=== PATIENT | female | born 1970 | race Caucasian/White ===

== ENCOUNTER 2016-07-29 22:15 | Inpatient (IN) | payer OTHER ==
[~2016-07-29] VITALS: Ht 175.3 cm; Wt 83.6 kg
[~2016-07-29 22:15] MED LIST: LEVA750T PO; LISI10TA3 PO
[2016-07-29] MEDS ORDERED: PROPOFOL 1000 MG/100 ML INJ 100 ML ONE (22:32)
[2016-07-29 22:55] VITALS: O2SAT 100
[2016-07-29] MEDS: LACTATED RINGER'S 1000 ML INJ 1,000 ML IV SCH (22:55)
[2016-07-29] MEDS ORDERED: MAGNESIUM HYDROXIDE SUSP 30 ML CUP PO PRN (23:00)
[2016-07-29] MEDS ORDERED: MISCELLANEOUS NURSING INFORMATION XX SCH (23:00)
[2016-07-29] MEDS ORDERED: ENALAPRILAT 1.25 MG/ML VIAL IV PRN (23:00)
[2016-07-29] MEDS ORDERED: CHLORHEXIDINE GLUCONATE 2 % 1 PACK (2 CLOTHS) TOP PRN (23:00)
[2016-07-29] MEDS ORDERED: fentaNYL DRIP 250 ML IV SCH (23:00)
[2016-07-29] MEDS ORDERED: ONDANSETRON HCL 4 MG/2 ML VIAL IV PRN (23:00)
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
[2016-07-29 23:07] LABS: AUTOMATED NEUTROPHIL # 19.2 TH/MM3 (1.8-7.7); BASOPHIL # 0.1 TH/MM3 (0-0.2); BASOPHIL % 0.3 % (0.0-2.0); EOSINOPHIL # 0.2 TH/MM3 (0-0.4); EOSINOPHIL % 0.8 % (0.0-4.0); HEMATOCRIT 31.4 % (35.0-46.0); LYMPH % 12.1 % (9.0-44.0); LYMPHOCYTE # 2.8 TH/MM3 (1.0-4.8); MEAN CELL VOLUME 64.8 FL (80.0-100.0); MEAN CORPUSCULAR HEMOGLOBIN 19.8 PG (27.0-34.0); MEAN CORPUSCULAR HGB CONC 30.6 % (32.0-36.0); MONO % 5.4 % (0.0-8.0); NEUT % 81.4 % (16.0-70.0); PLATELET COUNT 370 TH/MM3 (150-450); RED BLOOD COUNT 4.85 MIL/MM3 (4.00-5.30); RED CELL DISTRIBUTION WIDTH 19.2 % (11.6-17.2); WHITE BLOOD COUNT 23.6 TH/MM3 (4.0-11.0)
[2016-07-29 23:08] LABS: I-STAT POTASSIUM 4.1 MMOL/L (3.5-4.9); I-STAT SODIUM 140 MMOL/L (138-146)
[2016-07-29] MEDS ORDERED: IOHEXOL 350 MG/ML 10 ML VIAL (for RAD DIAG) IV ONE (23:08)
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
[2016-07-29 23:19] LABS: HEMO FLAGS AUTO DIFF
[2016-07-29] MEDS ORDERED: LIDOCAINE HCL 1% PF 30 ML VIAL ONE (23:21)
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
[2016-07-29] MEDS ORDERED: ETOMIDATE 20 MG/10 ML VIAL IV PUSH ONE (23:30)
[2016-07-29] MEDS ORDERED: SUCCINYLCHOLINE CHLORIDE 200 MG/10 ML VIAL IV ONE (23:30)
[2016-07-29 23:31] LABS: BETA HCG QUANT LESS THAN 1 MIU/ML (0-5)
[2016-07-29 23:32] LABS: APTT (PATIENT) 19.3 SEC (24.3-30.1)
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
[2016-07-29 23:45] VITALS: O2SAT 100
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
[2016-07-30] VITALS (19 sets, daily range): BP systolic 107–127; BP diastolic 74–89; PULSE 84–112; RESP 11–16; TEMP 97.4–99.2; O2SAT 99–100
[2016-07-30 00:09] LABS: BLOOD GAS BASE EXCESS -2.4 mmol/L (-2-2); BLOOD GAS CARBOXYHEMOGLOBIN 2.6 % (0-4); BLOOD GAS HCO3 22 mmol/L (22-26); BLOOD GAS METHEMOGLOBIN 0.9 % (0-2); BLOOD GAS O2 HGB SATURATION 97 % (90-100); BLOOD GAS OXYGEN CONTENT 12.2 Vol % (12.0-20.0); BLOOD GAS PCO2 41 mmHg (38-42); BLOOD GAS PO2 455 mmHg (61-120); BLOOD GAS TOTAL HGB 8.1 G/DL (12.0-16.0); CRITICAL VALUE NO; DRAW SITE RT RADIAL; FIO2 100 %; NUMBER OF ARTERIAL PUNCTURES 1; OXYGEN DEVICE VENTILATOR; STAT NO; TEMP CORR TO 98.6; ULNAR PULSE PRESENT; VENT SETTINGS AC/16/550/PEEP5
[2016-07-30 00:13] LABS: BANDS 14 % (0-6); BASOPHILS 1 % (0-2); MYELOCYTES 1 % (0-0); NEUTROPHIL # MANUAL DIFF 19.6 TH/MM3 (1.8-7.7); POLYS (SEG NEUTROPHILS) 68 % (16-70); WBC DIFF SAMPLE 100
[2016-07-30 00:14] LABS: OVALOCYTES 1+ (NORMAL); PLATELET ESTIMATE SMEAR NORMAL (NORMAL); PLATELET MORPHOLOGY NORMAL (NORMAL); SCAN/DIFF FINAL DIFF MANUAL
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
[2016-07-30] MEDS: CHLORHEXIDINE GLUCONATE 2 % 1 PACK (2 CLOTHS) TOP SCH (00:46)
[2016-07-30] MEDS: PROPOFOL 1000 MG/100 ML INJ 100 ML IV SCH ×2 (01:11→09:06)
[2016-07-30 04:28] LABS: AUTOMATED NEUTROPHIL # 7.7 TH/MM3 (1.8-7.7); BASOPHIL # 0.1 TH/MM3 (0-0.2); BASOPHIL % 0.6 % (0.0-2.0); EOSINOPHIL % 0.1 % (0.0-4.0); HEMATOCRIT 27.2 % (35.0-46.0); LYMPH % 9.3 % (9.0-44.0); LYMPHOCYTE # 0.9 TH/MM3 (1.0-4.8); MEAN CELL VOLUME 64.5 FL (80.0-100.0); MEAN CORPUSCULAR HGB CONC 30.9 % (32.0-36.0); MONO % 10.1 % (0.0-8.0); NEUT % 79.9 % (16.0-70.0); PLATELET COUNT 267 TH/MM3 (150-450); RED BLOOD COUNT 4.22 MIL/MM3 (4.00-5.30); RED CELL DISTRIBUTION WIDTH 18.9 % (11.6-17.2); WHITE BLOOD COUNT 9.6 TH/MM3 (4.0-11.0)
[2016-07-30 04:42] LABS: HEMO FLAGS AUTO DIFF
[2016-07-30 04:57] LABS: BICARBONATE 25.5 MEQ/L (21.0-32.0); POTASSIUM 3.6 MEQ/L (3.5-5.1)
[2016-07-30] MEDS: LACTATED RINGER'S 1000 ML INJ 1,000 ML IV SCH ×2 (05:52→15:24)
--- NOTE | 2016-07-30 06:07 | RADRPT ---
EXAM DATE/TIME: 07/30/2016 04:37 [facility] COMPARISON: CHEST SINGLE AP, July 29, 2016, 23:49. INDICATIONS : Shortness of breath. MEDICAL HISTORY : Unobtainable. SURGICAL HISTORY : Unobtainable. ENCOUNTER: Subsequent ACUITY: 2 days PAIN SCORE: Non-responsive. LOCATION: Bilateral chest FINDINGS: Endotracheal tube tip well above the juan carlos. Right subclavian catheter tip projects over the distal superior vena cava. Right chest drainage tube tip remains projected over the mid right lung. No pne umothorax seen. CONCLUSION: Lines and tubes stable. No pneumothorax seen on the right side. Juan Pablo Rojo MD on July 30, 2016 at 6:05 Board Certified Radiologist. This report was verified electronically.
[2016-07-30] MEDS ORDERED: POTASSIUM PHOSPHATE INJ 30 MMOL in SODIUM CHLOR 0.9% 250 ML INJ 250 ML IV PRN (07:45)
[2016-07-30] MEDS ORDERED: RESP: ALBUTEROL 2.5 MG/IPRATROPIUM 0.5 MG NEB (PRN) NEB (07:45)
[2016-07-30] MEDS ORDERED: SODIUM PHOSPHATE INJ 30 MMOL in SODIUM CHLOR 0.9% 250 ML INJ 240 ML IV PRN (07:45)
[2016-07-30] MEDS ORDERED: MAGNESIUM SULFATE INJ 4 GM in SODIUM CHLORIDE 0.9% INJ 92 ML IV PRN (07:45)
[2016-07-30] MEDS ORDERED: POTASSIUM PHOSPHATE MONOBASIC 500 MG TAB PO PRN (07:45)
[2016-07-30] MEDS ORDERED: MAGNESIUM OXIDE 400 MG TAB PO PRN (07:45)
[2016-07-30] MEDS ORDERED: POTASSIUM CHLOR 20 MEQ PREMIX 100 ML IV PRN ×2 (07:45)
[2016-07-30] MEDS ORDERED: POTASSIUM CL 40 MEQ/30 ML LIQ UDC PO/TUBE PRN ×2 (07:45)
[2016-07-30] MEDS ORDERED: POTASSIUM PHOSPHATE MONOBASIC 500 MG TAB PO/TUBE PRN (07:45)
[2016-07-30] MEDS ORDERED: POTASSIUM CHLOR 40 MEQ PREMIX 100 ML IV PRN ×2 (07:45)
[2016-07-30] MEDS ORDERED: MAGNESIUM SULFATE INJ 2 GM in SODIUM CHLORIDE 0.9% INJ 96 ML IV PRN (07:45)
[2016-07-30] MEDS: CHLORHEXIDINE 0.12% (ORAL KIT) 15 ML CUP MT SCH ×2 (08:00→20:00)
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
[2016-07-30] MEDS: PANTOPRAZOLE SODIUM 40 MG VIAL IV PUSH SCH (09:07)
[2016-07-30] MEDS: DOCUSATE SODIUM 100 MG CAP PO SCH (09:07)
[2016-07-30] MEDS ORDERED: CHLORHEXIDINE GLUCONATE 2 % 1 PACK (2 CLOTHS) TOP PRN (09:30)
[2016-07-30] MEDS ORDERED: MISCELLANEOUS NURSING INFORMATION XX SCH (09:30)
[2016-07-30 10:45] LABS: SCAN/DIFF AUTO DIFF CONFIRMED
[2016-07-30] MEDS ORDERED: GLUCAGON 1 MG/ML VIAL OTHER PRN (11:00)
[2016-07-30] MEDS: INSULIN NovoLIN REGULAR SUPPLEMENTAL SCALE SQ SCH ×3 (11:00→21:00)
[2016-07-30] MEDS ORDERED: DEXTROSE 50% IN WATER 50 ML VIAL(D50) IV PUSH PRN (11:00)
[2016-07-30 11:01] LABS: BACTERIA, URINE OCC /hpf; BLOOD, URINE SMALL (NEG); COMMENT (UR) CATH-CULTURE IND; CULTURE IF INDICATED CATH CULTURE IND; GLUCOSE,URINE NEG (NEG); KETONE, URINE NEG (NEG); MUCUS URINE FEW /lpf (OCC); NITRITE,URINE NEG (NEG); PH, URINE 5.5 (5.0-8.5); URINE COLOR YELLOW (YELLW/STRAW)
[2016-07-30 12:22] LABS: HEMATOCRIT 26.8 % (35.0-46.0)
[2016-07-30 12:24] LABS: REVIEW FLAG FINAL
[2016-07-30] MEDS: ENOXAPARIN SODIUM 30 MG/0.3 ML SYRINGE SQ SCH ×2 (12:27)
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
[2016-07-30 13:39] LABS: BICARBONATE 29.2 MEQ/L (21.0-32.0); POTASSIUM 3.9 MEQ/L (3.5-5.1)
[2016-07-30] MEDS: oxyCODONE/ACETAMINOPHEN 5 MG/325 MG TAB PO PRN (20:32)
[2016-07-30] MEDS: MUPIROCIN 2% OINT 1 APPLIC/GM SYR EACH NARE SCH (21:00)
[2016-07-31] VITALS (15 sets, daily range): BP systolic 106–118; BP diastolic 70–79; PULSE 85–106; RESP 12–22; TEMP 97.7–99; O2SAT 97–100
[2016-07-31] MEDS: DOCUSATE SODIUM 100 MG CAP PO SCH ×3 (00:12→20:02)
[2016-07-31] MEDS: LACTATED RINGER'S 1000 ML INJ 1,000 ML IV SCH ×2 (00:13→06:06)
[2016-07-31] MEDS: ENOXAPARIN SODIUM 30 MG/0.3 ML SYRINGE SQ SCH ×3 (00:14→23:41)
[2016-07-31] MEDS: CHLORHEXIDINE GLUCONATE 2 % 1 PACK (2 CLOTHS) TOP SCH ×3 (00:14→20:03)
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
[2016-07-31 05:12] LABS: BLOOD GAS BASE EXCESS 1.7 mmol/L (-2-2); BLOOD GAS CARBOXYHEMOGLOBIN 1.6 % (0-4); BLOOD GAS HCO3 26 mmol/L (22-26); BLOOD GAS METHEMOGLOBIN 0.8 % (0-2); BLOOD GAS O2 HGB SATURATION 93 % (90-100); BLOOD GAS OXYGEN CONTENT 10.4 Vol % (12.0-20.0); BLOOD GAS PCO2 42 mmHg (38-42); BLOOD GAS PO2 78 mmHg (61-120); BLOOD GAS TOTAL HGB 7.8 G/DL (12.0-16.0); CRITICAL VALUE NO; TEMP CORR TO 98.6
[2016-07-31 05:13] LABS: DRAW SITE RT RADIAL; LITER FLOW 2 L/M; NUMBER OF ARTERIAL PUNCTURES 1; OXYGEN DEVICE NASAL CANNULA; STAT NO; ULNAR PULSE PRESENT
--- NOTE | 2016-07-31 05:35 | RADRPT ---
EXAM DATE/TIME: 07/31/2016 04:08 [facility] COMPARISON: CHEST SINGLE AP, July 30, 2016, 4:37. INDICATIONS : Shortness of breath, possible pulmonary disease. MEDICAL HISTORY : None. SURGICAL HISTORY : None. ENCOUNTER: Subsequent ACUITY: 3 days PAIN SCORE: Non-responsive. LOCATION: Bilateral chest FINDINGS: Interval extubation and removal of gastric tube. Right central line tip projects over the distal sup erior vena cava. Stable positions of the right chest tube. No evidence of pneumothorax. Patchy inf iltrates in the medial left lower lung stable. There is a new area of patchy infiltrate in the right infrahilar region. CONCLUSION: Stable infiltrates left lower lung and new right lower lung infiltrate. Juan Pablo Rojo MD on July 31, 2016 at 5:27 Board Certified Radiologist. This report was verified electronically.
[2016-07-31 05:42] LABS: HEMATOCRIT 24.9 % (35.0-46.0); MEAN CELL VOLUME 64.7 FL (80.0-100.0); MEAN CORPUSCULAR HEMOGLOBIN 20.1 PG (27.0-34.0); PLATELET COUNT 207 TH/MM3 (150-450); RED BLOOD COUNT 3.85 MIL/MM3 (4.00-5.30); RED CELL DISTRIBUTION WIDTH 18.9 % (11.6-17.2); WHITE BLOOD COUNT 11.1 TH/MM3 (4.0-11.0)
[2016-07-31 05:59] LABS: REVIEW FLAG FINAL
[2016-07-31 06:13] LABS: ALT (GPT) 79 U/L (10-53); AST (GOT) 147 U/L (15-37); BICARBONATE 28.2 MEQ/L (21.0-32.0); BLOOD UREA NITROGEN 20 MG/DL (7-18); CHLORIDE 105 MEQ/L (98-107); GLOMERULAR FILTRATION RATE 87 ML/MIN (>89); MAGNESIUM 2.2 MG/DL (1.5-2.5); POTASSIUM 3.9 MEQ/L (3.5-5.1); SODIUM (NA) 139 MEQ/L (136-145)
[2016-07-31 06:14] LABS: ANION GAP 6 MEQ/L (5-15)
[2016-07-31 06:16] LABS: ALKALINE PHOSPHATASE 84 U/L (45-117); TOTAL BILIRUBIN ADULT 0.5 MG/DL (0.2-1.0)
[2016-07-31] MEDS: INSULIN NovoLIN REGULAR SUPPLEMENTAL SCALE SQ SCH (06:41)
[2016-07-31] MEDS: PANTOPRAZOLE SODIUM 40 MG VIAL IV PUSH SCH (07:55)
[2016-07-31] MEDS: MUPIROCIN 2% OINT 1 APPLIC/GM SYR EACH NARE SCH ×2 (07:56→20:02)
[2016-07-31] MEDS: CHLORHEXIDINE 0.12% (ORAL KIT) 15 ML CUP MT SCH (08:00)
[2016-07-31] MEDS ORDERED: SENNOSIDES SYRUP 8.8 MG/5 ML CUP PO SCH (09:00)
[2016-07-31] MEDS: FAMOTIDINE 20 MG TAB PO SCH ×2 (09:10→20:02)
[2016-07-31] MEDS: oxyCODONE/ACETAMINOPHEN 5 MG/325 MG TAB PO PRN (09:10)
[2016-07-31] MEDS ORDERED: SODIUM CHLOR 0.9% 250 ML INJ 250 ML IV ONE (09:30)
[2016-07-31] MEDS: HYDROmorphone HCL PF 1 MG/ML VIAL IV PUSH PRN ×3 (12:04→23:45)
--- NOTE | 2016-07-31 14:15 | RADRPT ---
EXAM DATE/TIME: 07/31/2016 13:33 [facility] COMPARISON: CHEST SINGLE AP, July 31, 2016, 4:08. INDICATIONS : Evaluate post right side chest tube removal. MEDICAL HISTORY : None. SURGICAL HISTORY : None. ENCOUNTER: Initial ACUITY: 1 day PAIN SCORE: 0/10 LOCATION: Right chest FINDINGS: Chest tube has been removed on the right. There is no pneumothorax. Minimal parenchymal changes are seen in the right base. Left lung is clear. Heart and pulmonary vascularity are normal. CONCLUSION: There is no pneumothorax following chest tube removal. Ruben Schaffer MD FACR on July 31, 2016 at 14:11 Board Certified Radiologist. This report was verified electronically.
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
[2016-08-01] VITALS: BP 121/72; PULSE 90; RESP 20; TEMP 97.4; O2SAT 97
[2016-08-01] MEDS: oxyCODONE/ACETAMINOPHEN 5 MG/325 MG TAB PO PRN (01:35)
[2016-08-01] MEDS: HYDROmorphone HCL PF 1 MG/ML VIAL IV PUSH PRN ×3 (02:41→13:02)
[2016-08-01 06:19] LABS: HEMATOCRIT 27.5 % (35.0-46.0); MEAN CELL VOLUME 67.3 FL (80.0-100.0); MEAN CORPUSCULAR HEMOGLOBIN 21.2 PG (27.0-34.0); MEAN CORPUSCULAR HGB CONC 31.4 % (32.0-36.0); PLATELET COUNT 194 TH/MM3 (150-450); RED BLOOD COUNT 4.08 MIL/MM3 (4.00-5.30); RED CELL DISTRIBUTION WIDTH 20.7 % (11.6-17.2); WHITE BLOOD COUNT 11.3 TH/MM3 (4.0-11.0)
[2016-08-01 06:32] LABS: REVIEW FLAG FINAL
[2016-08-01 08:00] VITALS: BP 119/83; PULSE 102; RESP 22; TEMP 95.8; O2SAT 100
[2016-08-01] MEDS: MUPIROCIN 2% OINT 1 APPLIC/GM SYR EACH NARE SCH ×2 (09:01→20:38)
[2016-08-01] MEDS: FAMOTIDINE 20 MG TAB PO SCH ×2 (09:01→20:37)
[2016-08-01] MEDS: DOCUSATE SODIUM 100 MG CAP PO SCH ×2 (09:01→20:38)
[2016-08-01] MEDS: MAGNESIUM HYDROXIDE SUSP 30 ML CUP PO SCH (09:01)
[2016-08-01 10:59] VITALS: O2SAT 99
[2016-08-01 12:00] VITALS: BP 124/78; PULSE 96; RESP 20; TEMP 96.4; O2SAT 100
[2016-08-01] MEDS ORDERED: LACTULOSE SYRUP 20 GM/30 ML CUP PO ONE (12:30)
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
[2016-08-01] MEDS: ENOXAPARIN SODIUM 30 MG/0.3 ML SYRINGE SQ SCH ×2 (13:08→21:42)
[2016-08-01 16:00] VITALS: BP 122/76; PULSE 98; RESP 20; TEMP 96.8; O2SAT 100
[2016-08-01] MEDS: MORPHINE SULFATE 4 MG/ML INJ IV PUSH PRN ×2 (17:58→21:42)
[2016-08-01 20:00] VITALS: BP 123/87; PULSE 109; RESP 19; TEMP 96.9; O2SAT 100
[2016-08-01] MEDS: CHLORHEXIDINE GLUCONATE 2 % 1 PACK (2 CLOTHS) TOP SCH (20:38)
[2016-08-02] VITALS: BP 130/82; PULSE 112; RESP 19; TEMP 98.5; O2SAT 98
[2016-08-02] MEDS: MORPHINE SULFATE 4 MG/ML INJ IV PUSH PRN ×6 (04:52→23:47)
[2016-08-02 08:00] VITALS: BP 132/92; PULSE 101; RESP 20; TEMP 98.4; O2SAT 100
[2016-08-02] MEDS: MUPIROCIN 2% OINT 1 APPLIC/GM SYR EACH NARE SCH ×2 (08:15→20:17)
[2016-08-02] MEDS: DOCUSATE SODIUM 100 MG CAP PO SCH ×2 (08:15→20:17)
[2016-08-02] MEDS: FAMOTIDINE 20 MG TAB PO SCH ×2 (08:15→20:17)
[2016-08-02] MEDS: MAGNESIUM HYDROXIDE SUSP 30 ML CUP PO SCH (08:15)
[2016-08-02] MEDS ORDERED: LACTULOSE SYRUP 20 GM/30 ML CUP PO ONE (08:45)
[2016-08-02 12:00] VITALS: BP 117/82; PULSE 101; RESP 20; TEMP 96.8; O2SAT 99
[2016-08-02] MEDS: ENOXAPARIN SODIUM 30 MG/0.3 ML SYRINGE SQ SCH ×2 (13:24→23:47)
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
[2016-08-02 16:00] VITALS: BP 124/78; PULSE 100; RESP 20; TEMP 97.2; O2SAT 99
[2016-08-02 20:00] VITALS: BP 135/86; PULSE 102; RESP 20; TEMP 98.4; O2SAT 100
[2016-08-02] MEDS: SODIUM CHLORIDE 0.9% FLUSH 5 ML FLUSH IVF PRN (20:13)
[2016-08-02] MEDS: RESP: ALBUTEROL 2.5 MG/IPRATROPIUM 0.5 MG NEB (SCH) NEB (20:28)
[2016-08-02 20:31] VITALS: O2SAT 100
[2016-08-02] MEDS: oxyCODONE/ACETAMINOPHEN 5 MG/325 MG TAB PO PRN (22:43)
[2016-08-03] VITALS (7 sets, daily range): BP systolic 125–141; BP diastolic 78–92; PULSE 90–107; RESP 20; TEMP 95.9–98.6; O2SAT 96–100
[2016-08-03] MEDS: CYCLOBENZAPRINE HCL 10 MG TAB PO SCH ×4 (00:40→23:48)
[2016-08-03] MEDS: CHLORHEXIDINE GLUCONATE 2 % 1 PACK (2 CLOTHS) TOP SCH (04:00)
[2016-08-03] MEDS: SODIUM CHLORIDE 0.9% FLUSH 5 ML FLUSH IVF PRN ×3 (04:22→23:49)
[2016-08-03] MEDS: MORPHINE SULFATE 4 MG/ML INJ IV PUSH PRN ×6 (04:22→23:49)
[2016-08-03] MEDS: DOCUSATE SODIUM 100 MG CAP PO SCH ×2 (07:19→19:47)
[2016-08-03] MEDS: FAMOTIDINE 20 MG TAB PO SCH ×2 (07:19→19:47)
[2016-08-03] MEDS: MAGNESIUM HYDROXIDE SUSP 30 ML CUP PO SCH (07:19)
[2016-08-03] MEDS: MUPIROCIN 2% OINT 1 APPLIC/GM SYR EACH NARE SCH ×2 (07:19→19:47)
[2016-08-03] MEDS ORDERED: BISACODYL 10 MG SUPP RECTAL ONE (08:15)
[2016-08-03] MEDS ORDERED: BISACODYL EC 5 MG TABEC PO ONE (08:15)
[2016-08-03] MEDS: RESP: ALBUTEROL 2.5 MG/IPRATROPIUM 0.5 MG NEB (SCH) NEB ×3 (08:28→20:00)
[2016-08-03] MEDS: oxyCODONE/ACETAMINOPHEN 5 MG/325 MG TAB PO PRN ×2 (10:36→14:48)
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
[2016-08-03] MEDS ORDERED: diphenhydrAMINE HCL 25 MG CAP PO PRN (12:00)
[2016-08-03] MEDS: ENOXAPARIN SODIUM 30 MG/0.3 ML SYRINGE SQ SCH ×2 (12:23→23:48)
[2016-08-04] VITALS: BP 136/77; PULSE 84; RESP 18; TEMP 97.2; O2SAT 98
[2016-08-04] MEDS: oxyCODONE/ACETAMINOPHEN 5 MG/325 MG TAB PO PRN (02:24)
[2016-08-04] MEDS: CHLORHEXIDINE GLUCONATE 2 % 1 PACK (2 CLOTHS) TOP SCH (03:55)
[2016-08-04] MEDS: SODIUM CHLORIDE 0.9% FLUSH 5 ML FLUSH IVF PRN (05:17)
[2016-08-04] MEDS: MORPHINE SULFATE 4 MG/ML INJ IV PUSH PRN ×5 (05:18→22:12)
[2016-08-04] MEDS: CYCLOBENZAPRINE HCL 10 MG TAB PO SCH ×3 (05:18→22:11)
[2016-08-04 07:01] LABS: HEMATOCRIT 30.6 % (35.0-46.0); MEAN CELL VOLUME 68.1 FL (80.0-100.0); MEAN CORPUSCULAR HEMOGLOBIN 21.3 PG (27.0-34.0); MEAN CORPUSCULAR HGB CONC 31.4 % (32.0-36.0); PLATELET COUNT 256 TH/MM3 (150-450); RED BLOOD COUNT 4.49 MIL/MM3 (4.00-5.30); WHITE BLOOD COUNT 10.9 TH/MM3 (4.0-11.0)
[2016-08-04 07:14] LABS: REVIEW FLAG FINAL
[2016-08-04 07:25] LABS: BICARBONATE 34.2 MEQ/L (21.0-32.0); MAGNESIUM 2.2 MG/DL (1.5-2.5); POTASSIUM 4.2 MEQ/L (3.5-5.1)
[2016-08-04 08:00] VITALS: BP 138/92; PULSE 104; RESP 20; TEMP 97.5; O2SAT 96
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
[2016-08-04] MEDS: RESP: ALBUTEROL 2.5 MG/IPRATROPIUM 0.5 MG NEB (SCH) NEB ×3 (08:21→19:09)
[2016-08-04] MEDS ORDERED: BISACODYL EC 5 MG TABEC PO ONE (08:30)
[2016-08-04] MEDS ORDERED: BISACODYL 10 MG SUPP RECTAL ONE (08:30)
[2016-08-04] MEDS: LACTULOSE SYRUP 20 GM/30 ML CUP PO SCH (09:56)
[2016-08-04] MEDS: DOCUSATE SODIUM 100 MG CAP PO SCH ×2 (09:56→22:11)
[2016-08-04] MEDS: MUPIROCIN 2% OINT 1 APPLIC/GM SYR EACH NARE SCH ×2 (09:56→22:11)
[2016-08-04] MEDS: FAMOTIDINE 20 MG TAB PO SCH ×2 (09:56→22:11)
[2016-08-04] MEDS: MAGNESIUM HYDROXIDE SUSP 30 ML CUP PO SCH (09:56)
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
[2016-08-04 12:00] VITALS: BP 133/86; PULSE 109; RESP 20; TEMP 97.2; O2SAT 95
[2016-08-04] MEDS: ENOXAPARIN SODIUM 30 MG/0.3 ML SYRINGE SQ SCH (12:32)
[2016-08-04 13:56] LABS: BLOOD, URINE LARGE (NEG); COMMENT (UR) CULTURE INDICATED; CULTURE IF INDICATED CULTURE INDICATED; GLUCOSE,URINE NEG (NEG); KETONE, URINE NEG (NEG); NITRITE,URINE NEG (NEG); SQUAMOUS EPITHELIAL CELL URINE 11 /hpf (0-5); TRANSITIONAL EPI CELLS, URINE 1 /hpf; URINE COLOR YELLOW (YELLW/STRAW)
[2016-08-04 13:57] LABS: BACTERIA, URINE MANY /hpf
[2016-08-04 16:00] VITALS: BP 117/67; PULSE 112; RESP 20; TEMP 96.6; O2SAT 97
[2016-08-04 20:00] VITALS: BP 124/80; PULSE 100; RESP 20; TEMP 98.2; O2SAT 97
[2016-08-05] VITALS (8 sets, daily range): BP systolic 111–135; BP diastolic 68–86; PULSE 71–114; RESP 16–20; TEMP 95.8–98; O2SAT 94–99
[2016-08-05] MEDS: ENOXAPARIN SODIUM 30 MG/0.3 ML SYRINGE SQ SCH ×3 (01:02→23:31)
[2016-08-05] MEDS: MORPHINE SULFATE 4 MG/ML INJ IV PUSH PRN ×6 (01:03→23:32)
[2016-08-05] MEDS: CHLORHEXIDINE GLUCONATE 2 % 1 PACK (2 CLOTHS) TOP SCH (03:57)
[2016-08-05] MEDS: CYCLOBENZAPRINE HCL 10 MG TAB PO SCH ×3 (05:59→22:19)
[2016-08-05] MEDS: DOCUSATE SODIUM 100 MG CAP PO SCH ×2 (08:43→22:19)
[2016-08-05] MEDS: FAMOTIDINE 20 MG TAB PO SCH ×2 (08:43→22:19)
[2016-08-05] MEDS: MUPIROCIN 2% OINT 1 APPLIC/GM SYR EACH NARE SCH ×2 (08:43→21:00)
[2016-08-05] MEDS: LACTULOSE SYRUP 20 GM/30 ML CUP PO SCH (08:43)
[2016-08-05] MEDS: MAGNESIUM HYDROXIDE SUSP 30 ML CUP PO SCH (08:43)
[2016-08-05] MEDS: RESP: ALBUTEROL 2.5 MG/IPRATROPIUM 0.5 MG NEB (SCH) NEB ×3 (10:33→20:38)
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
[2016-08-05] MEDS: HYDROmorphone HCL 2 MG TAB PO PRN ×2 (15:04→22:20)
[2016-08-05] MEDS: SULFAMETHOXAZOLE-TRIMETHOPRIM DS 800-160 MG TAB PO SCH (15:04)
[2016-08-06 00:13] VITALS: BP 113/76; PULSE 80; RESP 18; TEMP 97.3; O2SAT 97
[2016-08-06] MEDS: SULFAMETHOXAZOLE-TRIMETHOPRIM DS 800-160 MG TAB PO SCH ×2 (03:12→13:24)
[2016-08-06] MEDS: HYDROmorphone HCL 2 MG TAB PO PRN ×2 (03:12→08:31)
[2016-08-06 03:55] VITALS: BP 119/78; PULSE 109; RESP 18; TEMP 98.9; O2SAT 97
[2016-08-06] MEDS: CHLORHEXIDINE GLUCONATE 2 % 1 PACK (2 CLOTHS) TOP SCH (04:00)
[2016-08-06] MEDS: MORPHINE SULFATE 4 MG/ML INJ IV PUSH PRN ×4 (04:33→16:31)
[2016-08-06] MEDS: CYCLOBENZAPRINE HCL 10 MG TAB PO SCH ×3 (06:17→22:03)
[2016-08-06 08:00] VITALS: BP 108/71; PULSE 107; RESP 20; TEMP 97.6; O2SAT 96
[2016-08-06] MEDS: LACTULOSE SYRUP 20 GM/30 ML CUP PO SCH (08:32)
[2016-08-06] MEDS: MAGNESIUM HYDROXIDE SUSP 30 ML CUP PO SCH (08:32)
[2016-08-06] MEDS: FAMOTIDINE 20 MG TAB PO SCH ×2 (08:32→22:03)
[2016-08-06] MEDS: DOCUSATE SODIUM 100 MG CAP PO SCH ×2 (08:32→22:02)
[2016-08-06] MEDS: MUPIROCIN 2% OINT 1 APPLIC/GM SYR EACH NARE SCH ×2 (08:32→21:00)
[2016-08-06] MEDS: RESP: ALBUTEROL 2.5 MG/IPRATROPIUM 0.5 MG NEB (SCH) NEB ×2 (08:43→12:19)
[2016-08-06] MEDS ORDERED: MAGNESIUM CITRATE SOLN 300 ML BTL PO ONE (09:00)
[2016-08-06] MEDS: ENOXAPARIN SODIUM 30 MG/0.3 ML SYRINGE SQ SCH (10:00)
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
[2016-08-06 12:00] VITALS: BP 107/76; PULSE 118; RESP 18; TEMP 97.1; O2SAT 98
[2016-08-06] MEDS: oxyCODONE/ACETAMINOPHEN 5 MG/325 MG TAB PO PRN ×2 (15:35→22:03)
[2016-08-06 16:00] VITALS: BP 121/58; PULSE 117; RESP 18; TEMP 96.9; O2SAT 98
[2016-08-06 20:00] VITALS: BP 122/87; PULSE 109; RESP 20; TEMP 97.5; O2SAT 97
[2016-08-07] VITALS: BP 103/73; PULSE 106; RESP 20; TEMP 96; O2SAT 95
[2016-08-07] MEDS: ENOXAPARIN SODIUM 30 MG/0.3 ML SYRINGE SQ SCH ×3 (01:36→23:20)
[2016-08-07] MEDS: SULFAMETHOXAZOLE-TRIMETHOPRIM DS 800-160 MG TAB PO SCH ×2 (01:36→13:20)
[2016-08-07] MEDS: MORPHINE SULFATE 4 MG/ML INJ IV PUSH PRN ×3 (01:37→11:11)
[2016-08-07] MEDS: oxyCODONE/ACETAMINOPHEN 5 MG/325 MG TAB PO PRN ×5 (04:37→20:48)
[2016-08-07] MEDS: CYCLOBENZAPRINE HCL 10 MG TAB PO SCH ×3 (04:37→23:20)
[2016-08-07] MEDS: FAMOTIDINE 20 MG TAB PO SCH ×2 (07:54→20:48)
[2016-08-07] MEDS: LACTULOSE SYRUP 20 GM/30 ML CUP PO SCH (07:54)
[2016-08-07] MEDS: DOCUSATE SODIUM 100 MG CAP PO SCH ×2 (07:54→20:47)
[2016-08-07] MEDS: MAGNESIUM HYDROXIDE SUSP 30 ML CUP PO SCH (07:54)
[2016-08-07] MEDS: MUPIROCIN 2% OINT 1 APPLIC/GM SYR EACH NARE SCH ×2 (07:55→20:49)
[2016-08-07] MEDS: SODIUM CHLORIDE 0.9% FLUSH 5 ML FLUSH IVF PRN (07:55)
[2016-08-07 08:00] VITALS: BP 111/79; PULSE 104; RESP 20; TEMP 99.1; O2SAT 96
[2016-08-07] MEDS ORDERED: SOD PHOSPHATE/SOD BIPHOSPHATE (ADULT) ENEMA 133ML PR ONE (08:45)
[2016-08-07] MEDS ORDERED: LACTULOSE SYRUP 20 GM/30 ML CUP PO ONE (08:45)
[2016-08-07] MEDS: SENNOSIDES 8.6 MG TAB PO SCH (09:34)
[2016-08-07] MEDS: POLYETHYLENE GLYCOL 17 GM PKG PO SCH (09:34)
[2016-08-07 12:00] VITALS: BP 128/78; PULSE 106; RESP 22; TEMP 98.9; O2SAT 97
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
[2016-08-07 16:00] VITALS: BP 115/85; PULSE 110; RESP 20; TEMP 98.6; O2SAT 98
[2016-08-07 20:00] VITALS: BP 115/86; PULSE 102; RESP 19; TEMP 97.2; O2SAT 96
[2016-08-08] VITALS: BP 110/75; PULSE 98; RESP 19; TEMP 96.8; O2SAT 97
[2016-08-08] MEDS: oxyCODONE/ACETAMINOPHEN 5 MG/325 MG TAB PO PRN ×6 (02:48→21:55)
[2016-08-08] MEDS: SULFAMETHOXAZOLE-TRIMETHOPRIM DS 800-160 MG TAB PO SCH ×2 (02:48→18:11)
[2016-08-08 05:13] LABS: HEMATOCRIT 30.7 % (35.0-46.0); MEAN CELL VOLUME 69.5 FL (80.0-100.0); MEAN CORPUSCULAR HEMOGLOBIN 21.2 PG (27.0-34.0); MEAN CORPUSCULAR HGB CONC 30.5 % (32.0-36.0); PLATELET COUNT 325 TH/MM3 (150-450); RED BLOOD COUNT 4.42 MIL/MM3 (4.00-5.30); RED CELL DISTRIBUTION WIDTH 23.7 % (11.6-17.2); WHITE BLOOD COUNT 12.1 TH/MM3 (4.0-11.0)
[2016-08-08 05:20] LABS: REVIEW FLAG FINAL
[2016-08-08 05:32] LABS: BICARBONATE 30.8 MEQ/L (21.0-32.0); MAGNESIUM 2.2 MG/DL (1.5-2.5); POTASSIUM 3.6 MEQ/L (3.5-5.1)
[2016-08-08] MEDS: CYCLOBENZAPRINE HCL 10 MG TAB PO SCH ×3 (07:02→21:54)
[2016-08-08 08:00] VITALS: BP 125/91; PULSE 103; RESP 20; TEMP 97.8; O2SAT 100
[2016-08-08] MEDS ORDERED: LACTULOSE SYRUP 20 GM/30 ML CUP PO SCH (09:00)
[2016-08-08] MEDS: MAGNESIUM HYDROXIDE SUSP 30 ML CUP PO SCH (09:28)
[2016-08-08] MEDS: LACTULOSE SYRUP 20 GM/30 ML CUP PO SCH (09:28)
[2016-08-08] MEDS: MUPIROCIN 2% OINT 1 APPLIC/GM SYR EACH NARE SCH ×2 (09:29→20:24)
[2016-08-08] MEDS: POLYETHYLENE GLYCOL 17 GM PKG PO SCH (09:29)
[2016-08-08] MEDS: FAMOTIDINE 20 MG TAB PO SCH ×2 (09:29→20:24)
[2016-08-08] MEDS: DOCUSATE SODIUM 100 MG CAP PO SCH ×2 (09:29→20:24)
[2016-08-08] MEDS: SENNOSIDES 8.6 MG TAB PO SCH (09:29)
[2016-08-08] MEDS: SODIUM CHLORIDE 0.9% FLUSH 5 ML FLUSH IVF PRN (09:32)
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
[2016-08-08 12:00] VITALS: BP 125/89; PULSE 102; RESP 20; TEMP 98.3; O2SAT 96
[2016-08-08] MEDS: ENOXAPARIN SODIUM 30 MG/0.3 ML SYRINGE SQ SCH (13:44)
[2016-08-08 16:00] VITALS: BP 101/69; PULSE 120; RESP 22; TEMP 97.6; O2SAT 100
[2016-08-08 20:00] VITALS: BP 129/76; PULSE 102; RESP 20; TEMP 97.6; O2SAT 100
[2016-08-09] VITALS: BP 122/77; PULSE 104; RESP 20; TEMP 97.5; O2SAT 96
[2016-08-09] MEDS: ENOXAPARIN SODIUM 30 MG/0.3 ML SYRINGE SQ SCH ×3 (00:13→23:35)
[2016-08-09] MEDS: SULFAMETHOXAZOLE-TRIMETHOPRIM DS 800-160 MG TAB PO SCH ×2 (02:52→14:27)
[2016-08-09] MEDS: oxyCODONE/ACETAMINOPHEN 5 MG/325 MG TAB PO PRN ×2 (05:01→19:43)
[2016-08-09] MEDS: CYCLOBENZAPRINE HCL 10 MG TAB PO SCH ×3 (05:01→21:31)
[2016-08-09 08:35] VITALS: BP 117/86; PULSE 125; RESP 26; TEMP 99.5; O2SAT 96
[2016-08-09] MEDS: MUPIROCIN 2% OINT 1 APPLIC/GM SYR EACH NARE SCH ×2 (09:00→19:39)
[2016-08-09] MEDS: POLYETHYLENE GLYCOL 17 GM PKG PO SCH (09:00)
[2016-08-09] MEDS: DOCUSATE SODIUM 100 MG CAP PO SCH ×2 (09:22→19:39)
[2016-08-09] MEDS: SENNOSIDES 8.6 MG TAB PO SCH (09:22)
[2016-08-09] MEDS: LACTULOSE SYRUP 20 GM/30 ML CUP PO SCH (09:23)
[2016-08-09] MEDS: FAMOTIDINE 20 MG TAB PO SCH ×2 (09:23→19:39)
[2016-08-09] MEDS: MAGNESIUM HYDROXIDE SUSP 30 ML CUP PO SCH (09:23)
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
[2016-08-09] MEDS ORDERED: WALKER WHEELS/F1 MIS (11:59)
[2016-08-09] MEDS ORDERED: BEDSIDE COMMODE1 MI1 (11:59)
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
[2016-08-09] MEDS ORDERED: MILKSUS PO (12:03)
[2016-08-09] MEDS ORDERED: DOCU1CAP39 PO (12:03)
[2016-08-09] MEDS ORDERED: SENN8.6T15 PO (12:03)
[2016-08-09] MEDS ORDERED: CYCL1TAB29 PO (12:03)
[2016-08-09 13:02] VITALS: BP 122/81; PULSE 128; RESP 18; TEMP 98.4; O2SAT 97
[2016-08-09 17:12] VITALS: BP 121/76; PULSE 122; RESP 18; TEMP 99.6; O2SAT 98
[2016-08-09] MEDS: SODIUM CHLORIDE 0.9% FLUSH 5 ML FLUSH IVF PRN (19:39)
[2016-08-09 20:00] VITALS: BP 129/88; PULSE 128; RESP 20; TEMP 99.8; O2SAT 98
[2016-08-10] VITALS: BP 128/85; PULSE 123; RESP 20; TEMP 98.5; O2SAT 97
[2016-08-10] MEDS: SULFAMETHOXAZOLE-TRIMETHOPRIM DS 800-160 MG TAB PO SCH ×2 (03:07→13:58)
[2016-08-10] MEDS: oxyCODONE/ACETAMINOPHEN 5 MG/325 MG TAB PO PRN ×3 (03:22→20:01)
[2016-08-10] MEDS: CYCLOBENZAPRINE HCL 10 MG TAB PO SCH ×3 (05:37→20:02)
[2016-08-10 08:00] VITALS: BP 120/91; PULSE 118; RESP 17; TEMP 98.2; O2SAT 99
[2016-08-10] MEDS: MUPIROCIN 2% OINT 1 APPLIC/GM SYR EACH NARE SCH ×2 (08:19→20:02)
[2016-08-10] MEDS: MAGNESIUM HYDROXIDE SUSP 30 ML CUP PO SCH (08:20)
[2016-08-10] MEDS: POLYETHYLENE GLYCOL 17 GM PKG PO SCH (08:20)
[2016-08-10] MEDS: LACTULOSE SYRUP 20 GM/30 ML CUP PO SCH (08:20)
[2016-08-10] MEDS: DOCUSATE SODIUM 100 MG CAP PO SCH ×2 (08:20→20:02)
[2016-08-10] MEDS: SENNOSIDES 8.6 MG TAB PO SCH (08:21)
[2016-08-10] MEDS: FAMOTIDINE 20 MG TAB PO SCH ×2 (08:21→20:02)
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
[2016-08-10] MEDS: ENOXAPARIN SODIUM 30 MG/0.3 ML SYRINGE SQ SCH ×2 (11:54→23:11)
[2016-08-10 12:00] VITALS: BP 118/88; PULSE 110; RESP 18; TEMP 98.4; O2SAT 98
[2016-08-10 16:00] VITALS: BP 123/78; PULSE 95; RESP 18; TEMP 98.1; O2SAT 97
[2016-08-10 20:00] VITALS: BP 118/83; PULSE 116; RESP 20; TEMP 97.5; O2SAT 100
[2016-08-10 21:59] LABS: AUTOMATED NEUTROPHIL # 7.1 TH/MM3 (1.8-7.7); BASOPHIL # 0.1 TH/MM3 (0-0.2); BASOPHIL % 0.9 % (0.0-2.0); EOSINOPHIL # 0.3 TH/MM3 (0-0.4); HEMATOCRIT 31.4 % (35.0-46.0); LYMPH % 15.2 % (9.0-44.0); LYMPHOCYTE # 1.5 TH/MM3 (1.0-4.8); MEAN CELL VOLUME 70.9 FL (80.0-100.0); MEAN CORPUSCULAR HEMOGLOBIN 22.2 PG (27.0-34.0); MEAN CORPUSCULAR HGB CONC 31.4 % (32.0-36.0); MONO % 9.8 % (0.0-8.0); NEUT % 71.1 % (16.0-70.0); PLATELET COUNT 461 TH/MM3 (150-450); RED BLOOD COUNT 4.44 MIL/MM3 (4.00-5.30); RED CELL DISTRIBUTION WIDTH 25.7 % (11.6-17.2)
[2016-08-10 22:08] LABS: HEMO FLAGS AUTO DIFF
[2016-08-10 22:34] LABS: OVALOCYTES 1+ (NORMAL); SCAN/DIFF AUTO DIFF CONFIRMED; TEARDROP RBCS 1+ (NORMAL)
[2016-08-11] VITALS: BP 121/87; PULSE 102; RESP 20; TEMP 99.5; O2SAT 99
[2016-08-11] MEDS: SULFAMETHOXAZOLE-TRIMETHOPRIM DS 800-160 MG TAB PO SCH (02:48)
[2016-08-11] MEDS: oxyCODONE/ACETAMINOPHEN 5 MG/325 MG TAB PO PRN (02:48)
[2016-08-11] MEDS: CYCLOBENZAPRINE HCL 10 MG TAB PO SCH ×3 (04:50→20:33)
[2016-08-11 08:00] VITALS: BP 109/79; PULSE 98; RESP 16; TEMP 96.1; O2SAT 99
[2016-08-11] MEDS: SENNOSIDES 8.6 MG TAB PO SCH (09:00)
[2016-08-11] MEDS: MAGNESIUM HYDROXIDE SUSP 30 ML CUP PO SCH (09:00)
[2016-08-11] MEDS: POLYETHYLENE GLYCOL 17 GM PKG PO SCH (09:00)
[2016-08-11] MEDS: LACTULOSE SYRUP 20 GM/30 ML CUP PO SCH (09:00)
[2016-08-11] MEDS: DOCUSATE SODIUM 100 MG CAP PO SCH ×2 (09:00→20:32)
[2016-08-11] MEDS: MUPIROCIN 2% OINT 1 APPLIC/GM SYR EACH NARE SCH ×2 (09:00→20:33)
[2016-08-11] MEDS: FAMOTIDINE 20 MG TAB PO SCH ×2 (09:58→20:32)
[2016-08-11 12:00] VITALS: BP 119/82; PULSE 115; RESP 16; TEMP 97.3; O2SAT 97
[2016-08-11] MEDS: ENOXAPARIN SODIUM 30 MG/0.3 ML SYRINGE SQ SCH (12:26)
[2016-08-11] MEDS: ACETAMINOPHEN/HYDROcodone 325 MG/7.5 MG TAB PO PRN ×2 (12:26→20:32)
[2016-08-11 16:00] VITALS: BP 119/85; PULSE 113; RESP 16; TEMP 97.5; O2SAT 100
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
[2016-08-11 20:00] VITALS: BP 128/98; PULSE 128; RESP 19; TEMP 97.1; O2SAT 100
[2016-08-11 20:19] LABS: BACTERIA, URINE RARE /hpf; BLOOD, URINE NEG (NEG); COMMENT (UR) CULT NOT INDICATED; CULTURE IF INDICATED CULT NOT INDICATED; GLUCOSE,URINE NEG (NEG); KETONE, URINE NEG (NEG); MUCUS URINE FEW /lpf (OCC); NITRITE,URINE NEG (NEG); SQUAMOUS EPITHELIAL CELL URINE 8 /hpf (0-5); URINE COLOR YELLOW (YELLW/STRAW)
[2016-08-11 20:24] LABS: AMPHETAMINE, URINE POS (NEG); BARBITURATES, URINE NEG (NEG); COCAINE, URINE NEG (NEG)
[2016-08-12] VITALS: BP_SYST 128; BP_SYST 136; BP_DIAS 85; BP_DIAS 98; PULSE 109; PULSE 128; RESP 19; RESP 20; TEMP 97.1; TEMP 97.8; O2SAT 100; O2SAT 98
[2016-08-12] MEDS: ENOXAPARIN SODIUM 30 MG/0.3 ML SYRINGE SQ SCH (00:42)
[2016-08-12] MEDS: CYCLOBENZAPRINE HCL 10 MG TAB PO SCH (04:50)
[2016-08-12 05:39] LABS: BICARBONATE 24.4 MEQ/L (21.0-32.0); POTASSIUM 4.7 MEQ/L (3.5-5.1)
[2016-08-12 05:44] LABS: HEMATOCRIT 33.7 % (35.0-46.0); MEAN CELL VOLUME 69.9 FL (80.0-100.0); MEAN CORPUSCULAR HEMOGLOBIN 22.5 PG (27.0-34.0); MEAN CORPUSCULAR HGB CONC 32.2 % (32.0-36.0); PLATELET COUNT 480 TH/MM3 (150-450); RED BLOOD COUNT 4.82 MIL/MM3 (4.00-5.30); RED CELL DISTRIBUTION WIDTH 25.7 % (11.6-17.2); WHITE BLOOD COUNT 15.7 TH/MM3 (4.0-11.0)
[2016-08-12 05:49] LABS: REVIEW FLAG FINAL
[2016-08-12] MEDS: ACETAMINOPHEN/HYDROcodone 325 MG/7.5 MG TAB PO PRN (07:50)
[2016-08-12] MEDS: FAMOTIDINE 20 MG TAB PO SCH (07:50)
[2016-08-12] MEDS: POLYETHYLENE GLYCOL 17 GM PKG PO SCH (07:51)
[2016-08-12] MEDS: MAGNESIUM HYDROXIDE SUSP 30 ML CUP PO SCH (07:51)
[2016-08-12] MEDS: DOCUSATE SODIUM 100 MG CAP PO SCH (07:51)
[2016-08-12] MEDS: LACTULOSE SYRUP 20 GM/30 ML CUP PO SCH (07:51)
[2016-08-12] MEDS: SENNOSIDES 8.6 MG TAB PO SCH (07:51)
[2016-08-12] MEDS: MUPIROCIN 2% OINT 1 APPLIC/GM SYR EACH NARE SCH (07:52)
[2016-08-12 08:00] VITALS: BP 132/90; PULSE 117; RESP 20; TEMP 97.1; O2SAT 100
[2016-08-12 08:55] VITALS: RESP 20
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
== END 2016-08-12 09:56 | disposition left against medical advice (07) | DRG 963 ==
LOC: NEPI 22:15 → EDBD 22:24 → MERGE 22:24 → NEDA 22:24 → N03B 23:40 → N07B 07-31 15:05
PROVIDERS: ADMIT Surgery; ATTEND Surgery
PROC: 5A1935Z Respiratory Ventilation, Less than 24 Consecutive Hours (ICD-10-PCS; principal; 2016-07-29)
PROC: 0BH17EZ Insertion of Endotracheal Airway into Trachea, Via Natural or Artificial Opening (ICD-10-PCS; 2016-07-29)
PROC: 02HV33Z Insertion of Infusion Device into Superior Vena Cava, Percutaneous Approach (ICD-10-PCS; 2016-07-29)
PROC: 30233N1 Transfusion of Nonautologous Red Blood Cells into Peripheral Vein, Percutaneous Approach (ICD-10-PCS; 2016-07-31)
DX: S22.43XA Multiple fractures of ribs, bilateral, initial encounter for closed fracture (principal); J96.00 Acute respiratory failure, unspecified whether with hypoxia or hypercapnia; S27.0XXA Traumatic pneumothorax, initial encounter; S32.591A Other specified fracture of right pubis, initial encounter for closed fracture; G93.40 Encephalopathy, unspecified; D62 Acute posthemorrhagic anemia; S32.10XA Unspecified fracture of sacrum, initial encounter for closed fracture; S27.321A Contusion of lung, unilateral, initial encounter; S37.011A Minor contusion of right kidney, initial encounter; N39.0 Urinary tract infection, site not specified; S32.592A Other specified fracture of left pubis, initial encounter for closed fracture; I10 Essential (primary) hypertension; I87.2 Venous insufficiency (chronic) (peripheral); S22.41XA Multiple fractures of ribs, right side, initial encounter for closed fracture; R07.81 Pleurodynia; M54.9 Dorsalgia, unspecified; M41.9 Scoliosis, unspecified; R19.7 Diarrhea, unspecified; Z88.5 Allergy status to narcotic agent; V49.40XA Driver injured in collision with unspecified motor vehicles in traffic accident, initial encounter
CPT/HCPCS: 31500; 32551; 36430; 36556; 36600; 70450; 71010; 71260; 72125; 72128; 72131; 72170; 74177; 76937; 80048; 80053; 80307; 80320; 81001; 82435; 82565; 82805; 82947; 82948; 83735; 84100; 84132; 84295; 84520; 84702; 85007; 85014; 85018; 85025; 85027; 85610; 85730; 86850; 86900; 86901; 86920; 87077; 87086; 87186; 87641; 90471; 94002; 94150; 94640; 94664; 96374; 96375; 96376; 99291; A0431-QM-SH; A0436-QM-SH; C9113; G0390; J1170; J1650; J2270; J3010; J7050; J7120; P9016; Q9967

== ENCOUNTER 2016-08-15 19:19 | Observation (INO) | payer OTHER ==
[~2016-08-15 19:19] MED LIST changes: +BEDSIDE COMMODE1 MI1; +CYCL1TAB29 PO; +DOCU1CAP39 PO; +MILKSUS PO; +SENN8.6T15 PO; +WALKER WHEELS/F1 MIS
[2016-08-15 19:22] VITALS: BP 141/93; PULSE 112; RESP 18; TEMP 98.2; O2SAT 100
[2016-08-16] VITALS (7 sets, daily range): BP systolic 131–153; BP diastolic 68–92; PULSE 68–106; RESP 17–20; TEMP 98–98.3; O2SAT 96–100
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
[2016-08-16] MEDS ORDERED: KETOROLAC TROMETHAMINE 30 MG/ML (IVP) VIAL IV PUSH ONE (00:30)
[2016-08-16] MEDS ORDERED: SODIUM CHLOR 0.9% 1000 ML INJ 1,000 ML IV ONE (00:30)
[2016-08-16 01:00] LABS: AUTOMATED NEUTROPHIL # 3.2 TH/MM3 (1.8-7.7); BASOPHIL # 0.1 TH/MM3 (0-0.2); BASOPHIL % 1.4 % (0.0-2.0); EOSINOPHIL # 0.5 TH/MM3 (0-0.4); EOSINOPHIL % 7.2 % (0.0-4.0); LYMPH % 31.5 % (9.0-44.0); MEAN CELL VOLUME 71.6 FL (80.0-100.0); MEAN CORPUSCULAR HEMOGLOBIN 22.5 PG (27.0-34.0); MEAN CORPUSCULAR HGB CONC 31.4 % (32.0-36.0); MONO % 8.8 % (0.0-8.0); NEUT % 51.1 % (16.0-70.0); PLATELET COUNT 611 TH/MM3 (150-450); RED BLOOD COUNT 4.61 MIL/MM3 (4.00-5.30); RED CELL DISTRIBUTION WIDTH 26.6 % (11.6-17.2); WHITE BLOOD COUNT 6.3 TH/MM3 (4.0-11.0)
[2016-08-16 01:04] LABS: HEMO FLAGS AUTO DIFF
[2016-08-16 01:06] LABS: AMPHETAMINE, URINE POS (NEG); BACTERIA, URINE RARE /hpf; BARBITURATES, URINE NEG (NEG); BLOOD, URINE NEG (NEG); COCAINE, URINE NEG (NEG); COMMENT (UR) CULT NOT INDICATED; CULTURE IF INDICATED CULT NOT INDICATED; GLUCOSE,URINE NEG (NEG); HYALINE CAST, URINE 1 /lpf (RARE); KETONE, URINE NEG (NEG); MUCUS URINE FEW /lpf (OCC); NITRITE,URINE NEG (NEG); PH, URINE 5.5 (5.0-8.5); SQUAMOUS EPITHELIAL CELL URINE 2 /hpf (0-5); TRANSITIONAL EPI CELLS, URINE <1 /hpf; URINE COLOR YELLOW (YELLW/STRAW)
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
[2016-08-16 01:24] LABS: ALKALINE PHOSPHATASE 211 U/L (45-117); TOTAL BILIRUBIN ADULT 0.2 MG/DL (0.2-1.0)
[2016-08-16 01:25] LABS: ALT (GPT) 29 U/L (10-53); ANION GAP 7 MEQ/L (5-15); AST (GOT) 27 U/L (15-37); BICARBONATE 29.1 MEQ/L (21.0-32.0); BLOOD UREA NITROGEN 16 MG/DL (7-18); CHLORIDE 102 MEQ/L (98-107); GLOMERULAR FILTRATION RATE 95 ML/MIN (>89); MAGNESIUM 1.7 MG/DL (1.5-2.5); POTASSIUM 3.8 MEQ/L (3.5-5.1); SODIUM (NA) 138 MEQ/L (136-145)
[2016-08-16 01:26] LABS: CREATINE KINASE 53 U/L (26-192)
[2016-08-16 01:28] LABS: SCAN/DIFF AUTO DIFF CONFIRMED
[2016-08-16] MEDS ORDERED: SODIUM CHLORIDE 0.9% FLUSH 5 ML FLUSH FLUSH PRN (04:45)
[2016-08-16] MEDS ORDERED: NALOXONE HCL 0.4 MG/ML AMP IV PRN (04:45)
[2016-08-16] MEDS ORDERED: KETOROLAC TROMETHAMINE 30 MG/ML (IVP) VIAL IVP PRN ×2 (04:45)
[2016-08-16] MEDS ORDERED: ACETAMINOPHEN 325 MG TAB PO PRN ×2 (04:45)
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
[2016-08-16] MEDS ORDERED: RESP: ALBUTEROL 2.5 MG/IPRATROPIUM 0.5 MG NEB (PRN) NEB (05:00)
[2016-08-16] MEDS ORDERED: ENALAPRILAT 1.25 MG/ML VIAL IV PUSH PRN (05:00)
[2016-08-16] MEDS: ENOXAPARIN SODIUM 40 MG/0.4 ML SYRINGE SQ SCH (06:37)
[2016-08-16] MEDS: SENNOSIDES 8.6 MG TAB PO SCH (09:00)
[2016-08-16] MEDS: SODIUM CHLORIDE 0.9% FLUSH 5 ML FLUSH FLUSH SCH ×2 (10:35→20:48)
[2016-08-16] MEDS: LISINOPRIL 10 MG TAB PO SCH (10:36)
[2016-08-16] MEDS: DOCUSATE SODIUM 100 MG CAP PO SCH ×2 (10:36→20:48)
[2016-08-16] MEDS ORDERED: ACETAMINOPHEN/HYDROcodone 325 MG/5 MG TAB PO PRN (12:00)
[2016-08-16] MEDS: ACETAMINOPHEN/HYDROcodone 325 MG/7.5 MG TAB PO PRN (12:24)
--- NOTE | 2016-08-16 18:44 | EKG ---
Date Performed: 08/16/2016 Time Performed: 01:04:31 PTAGE: 46 years EKG: Sinus rhythm When compared to prior tracing, the patient is no longer Tachycardic. NORMAL ECG PREVIOUS TRACING : 06/30/2015 19.00.08 DOCTOR: Nhung Ruth Interpretating Date/Time 08/16/2016 18:42:47
[2016-08-17] VITALS (7 sets, daily range): BP systolic 122–141; BP diastolic 63–88; PULSE 67–105; RESP 18–21; TEMP 97.6–98.2; O2SAT 95–98
[2016-08-17] MEDS: ENOXAPARIN SODIUM 40 MG/0.4 ML SYRINGE SQ SCH (04:34)
[2016-08-17] MEDS: SENNOSIDES 8.6 MG TAB PO SCH (08:03)
[2016-08-17] MEDS: DOCUSATE SODIUM 100 MG CAP PO SCH ×2 (08:03→22:00)
[2016-08-17] MEDS: LISINOPRIL 10 MG TAB PO SCH (08:04)
[2016-08-17] MEDS: ACETAMINOPHEN/HYDROcodone 325 MG/7.5 MG TAB PO PRN ×3 (08:04→22:00)
[2016-08-17] MEDS: SODIUM CHLORIDE 0.9% FLUSH 5 ML FLUSH FLUSH SCH ×2 (08:05→22:00)
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
[2016-08-18 04:25] VITALS: BP 124/88; PULSE 100; RESP 20; TEMP 98.6; O2SAT 95
[2016-08-18] MEDS: ENOXAPARIN SODIUM 40 MG/0.4 ML SYRINGE SQ SCH (05:57)
[2016-08-18] MEDS: ACETAMINOPHEN/HYDROcodone 325 MG/7.5 MG TAB PO PRN (05:58)
[2016-08-18 08:25] VITALS: BP 119/85; PULSE 99; RESP 20; TEMP 98.1; O2SAT 94
[2016-08-18] MEDS: SODIUM CHLORIDE 0.9% FLUSH 5 ML FLUSH FLUSH SCH (09:09)
[2016-08-18] MEDS: LISINOPRIL 10 MG TAB PO SCH (09:10)
[2016-08-18] MEDS: SENNOSIDES 8.6 MG TAB PO SCH (09:10)
[2016-08-18] MEDS: DOCUSATE SODIUM 100 MG CAP PO SCH (09:10)
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
[2016-08-18] MEDS ORDERED: NAPR500T PO (09:48)
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
== END 2016-08-18 12:56 | disposition home or self-care (01) ==
LOC: NEPC 19:19 → NEDA 08-16 01:57 → NEDH 08-16 06:13 → NEPHCDU 08-16 14:24
PROVIDERS: ADMIT Hospitalist; ATTEND Hospitalist
DX: S22.41XD Multiple fractures of ribs, right side, subsequent encounter for fracture with routine healing (principal); S32.10XD Unspecified fracture of sacrum, subsequent encounter for fracture with routine healing; S32.82XD Multiple fractures of pelvis without disruption of pelvic ring, subsequent encounter for fracture with routine healing; S37.011D Minor contusion of right kidney, subsequent encounter; I10 Essential (primary) hypertension; R06.02 Shortness of breath; R53.1 Weakness; D64.9 Anemia, unspecified; F17.290 Nicotine dependence, other tobacco product, uncomplicated; V49.40XD Driver injured in collision with unspecified motor vehicles in traffic accident, subsequent encounter; Z86.73 Personal history of transient ischemic attack (TIA), and cerebral infarction without residual deficits
CPT/HCPCS: 71010; 80053; 80307; 81001; 82550; 83735; 83880; 84443; 84484; 84703; 85025; 93005; 94150; 96361; 96374; 97163; 97166; 99285; G0378; G8987; G8988; G8989; J1650; J1885; J7030

== ENCOUNTER 2017-12-17 22:32 | Emergency (ER) | payer SELFPAY ==
[~2017-12-17] VITALS: Ht 177.8 cm; Wt 101.9 kg
[~2017-12-17 22:32] MED LIST changes: +CYCL10TA PO; -CYCL1TAB29 PO; -DOCU1CAP39 PO; -LEVA750T PO; -MILKSUS PO; +NAPR500T2 PO; -SENN8.6T15 PO
[2017-12-17 22:47] VITALS: BP 99/55; PULSE 122; RESP 18; TEMP 97.7; O2SAT 100
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
[2017-12-17 23:15] VITALS: BP 83/56; PULSE 114; RESP 18; O2SAT 100
--- NOTE | 2017-12-17 23:19 | RADRPT ---
EXAM DATE: 12/17/2017 11:15 PM EDT AGE/SEX: 47 years / Female INDICATIONS: Cough, short of breath, chest pain today CLINICAL DATA: This is the patient's initial encounter. Patient reports that signs and symptoms have been present for 4 - 6 days and indicates a pain score of 9/10. MEDICAL/SURGICAL HISTORY: Hypertension. low blood pressure today, vertigo None. COMPARISON: . FINDINGS: The lungs are clear without infiltrate, nodule, or mass. There is no appreciable pleural effusion for technique. Heart and mediastinum are unremarkable. CONCLUSION: No acute cardiopulmonary disease. Electronically signed by: Alban Gonzalez MD 12/17/2017 11:18 PM EDT
[2017-12-17 23:32] LABS: AUTOMATED NEUTROPHIL # 4.7 TH/MM3 (1.8-7.7); BASOPHIL # 0.1 TH/MM3 (0-0.2); BASOPHIL % 1.6 % (0.0-2.0); EOSINOPHIL % 0.7 % (0.0-4.0); HEMATOCRIT 35.8 % (35.0-46.0); HEMOGLOBIN 11.5 GM/DL (11.6-15.3); LYMPH % 18.4 % (9.0-44.0); LYMPHOCYTE # 1.3 TH/MM3 (1.0-4.8); MEAN CELL VOLUME 70.5 FL (80.0-100.0); MEAN CORPUSCULAR HEMOGLOBIN 22.6 PG (27.0-34.0); MEAN PLATELET VOLUME 8.2 FL (7.0-11.0); MONO % 10.8 % (0.0-8.0); MONOCYTE # 0.7 TH/MM3 (0-0.9); NEUT % 68.5 % (16.0-70.0); PLATELET COUNT 301 TH/MM3 (150-450); RED BLOOD COUNT 5.08 MIL/MM3 (4.00-5.30); RED CELL DISTRIBUTION WIDTH 16.9 % (11.6-17.2); WHITE BLOOD COUNT 6.8 TH/MM3 (4.0-11.0)
[2017-12-17 23:40] LABS: CHLORIDE 102 MEQ/L (98-107); SODIUM (NA) 138 MEQ/L (136-145)
[2017-12-17 23:43] LABS: CALCIUM 8.6 MG/DL (8.5-10.1)
[2017-12-17 23:44] LABS: ALBUMIN 3.6 GM/DL (3.4-5.0); BLOOD UREA NITROGEN 37 MG/DL (7-18); GLUCOSE,RANDOM 94 MG/DL (74-106)
[2017-12-17 23:47] LABS: ALT (GPT) 35 U/L (10-53); AST (GOT) 33 U/L (15-37); GLOMERULAR FILTRATION RATE 30 ML/MIN (>89)
[2017-12-17 23:48] LABS: TOTAL BILIRUBIN ADULT 0.4 MG/DL (0.2-1.0); TOTAL PROTEIN 7.9 GM/DL (6.4-8.2)
[2017-12-17 23:49] LABS: ALKALINE PHOSPHATASE 113 U/L (45-117)
[2017-12-17 23:52] LABS: TROPONIN I LESS THAN 0.02 NG/ML (0.02-0.05)
[2017-12-18] MEDS ORDERED: ENAL2.5T40 PO
[2017-12-18] MEDS ORDERED: HYDR12.57 PO (00:01)
[2017-12-18 00:36] VITALS: BP 84/53; PULSE 116; RESP 16; O2SAT 99
[2017-12-18 00:41] LABS: ACETAMINOPHEN LESS THAN 2.0 MCG/ML (10.0-30.0)
--- NOTE | 2017-12-18 00:47 | RADRPT ---
EXAM DATE: 12/18/2017 12:29 AM EDT AGE/SEX: 47 years / Female INDICATIONS: Left leg swelling. CLINICAL DATA: This is the patient's initial encounter. Patient reports that signs and symptoms have been present for 2 months and indicates a pain score of 0/10. MEDICAL/SURGICAL HISTORY: . Previous left leg fracture with hardware. . Left leg and ankle villaseñor rgery. COMPARISON: No prior exams available for comparison. TECHNIQUE: Venous ultrasound of both lower extremities was performed from the inguinal ligament to t he proximal calf. Real-time, color Doppler and spectral tracing, compression and augmentation techni ques were used. FINDINGS: There is normal compressibility of the deep venous system from the inguinal region to the proximal ca lf. No echogenic clot is seen in the lumen of the common femoral, femoral, popliteal, and posterior tibial veins. There is a normal response of the venous system to proximal and distal augmentation an d respiration. CONCLUSION: 1. The study is negative for lower extremity deep venous thrombosis. Electronically signed by: Alban Gonzalez MD 12/18/2017 12:45 AM EDT
[2017-12-18 01:15] VITALS: BP 88/52; PULSE 112
[2017-12-18] MEDS ORDERED: ZITHTAB PO (01:37)
[2017-12-18] MEDS ORDERED: TUSSSUS2 PO (01:37)
[2017-12-18] MEDS ORDERED: RESP: LIDOCAINE HCL 4% PF 5 ML NEB NEB SCH (01:45)
[2017-12-18] MEDS ORDERED: RESP: ALBUTEROL 2.5 MG/IPRATROPIUM 0.5 MG NEB (SCH) NEB (01:45)
[2017-12-18 02:20] VITALS: BP 87/55; PULSE 108
[2017-12-18 03:20] VITALS: BP 117/83; PULSE 105; RESP 18
[2017-12-18] MEDS ORDERED: SODIUM CHLOR 0.9% 1000 ML INJ 1,000 ML IV ONE (03:30)
[2017-12-18 03:49] LABS: BLOOD, URINE NEG (NEG); GLUCOSE,URINE NEG (NEG); KETONE, URINE NEG (NEG); NITRITE,URINE NEG (NEG); URINE LEUKOCYTE ESTERASE NEG (NEG)
[2017-12-18 03:57] LABS: BILIRUBIN, URINE NEG (NEG); RBC, URINE 0-3 /hpf (0-3); SQUAMOUS EPITHELIAL CELL URINE 0-5 /hpf (0-5); URINE COLOR AMBER (YELLW/STRAW); WBC, URINE 0-2 /hpf (0-5)
[2017-12-18] MEDS ORDERED: RESP: LIDOCAINE HCL 4% PF 5 ML NEB NEB ONE (04:00)
[2017-12-18] MEDS ORDERED: CHLORPHENIR/HYDROCOD LIQUID 8 MG/10 MG/5 ML CUP PO ONE (04:00)
[2017-12-18] MEDS ORDERED: BENZONATATE 100 MG CAP PO ONE (04:00)
[2017-12-18] MEDS ORDERED: LISI40TA PO (04:29)
[2017-12-18 04:30] VITALS: BP 144/62; PULSE 108
[2017-12-18] MEDS ORDERED: RESP: ALBUTEROL 2.5 MG/3 ML NEB (SCH) INH ONE (04:45)
[2017-12-18 05:21] VITALS: BP 109/68; TEMP 98.8
--- NOTE | 2017-12-18 08:06 | EKG ---
Date Performed: 12/17/2017 Time Performed: 22:39:40 PTAGE: 47 years EKG: SINUS TACHYCARDIA POSSIBLE LEFT ATRIAL ENLARGEMENT POSSIBLE INFERIOR MYOCARDIAL INFARCTION ABNORMAL RHYTHM ECG PREVIOUS TRACING : 08/16/2016 01.04 No significant change from previous tracing noted. DOCTOR: Tone Angel Interpretating Date/Time 12/18/2017 08:04:25
== END 2017-12-18 05:24 | disposition home or self-care (01) ==
LOC: PHED 22:32
DX: R07.9 Chest pain, unspecified (principal); I95.2 Hypotension due to drugs; R00.0 Tachycardia, unspecified; F15.90 Other stimulant use, unspecified, uncomplicated; F12.90 Cannabis use, unspecified, uncomplicated; I10 Essential (primary) hypertension; M19.90 Unspecified osteoarthritis, unspecified site; R94.31 Abnormal electrocardiogram [ECG] [EKG]; Z86.73 Personal history of transient ischemic attack (TIA), and cerebral infarction without residual deficits
CPT/HCPCS: 71045; 80053; 80307; 81001; 82550; 83690; 83880; 84443; 84484; 85025; 85379; 93005; 93971; 94640; 94664; 96360; 96361; 99291; J7030; J7613